=== PATIENT | male | born 1995 | race Hispanic/Latino ===

== ENCOUNTER 2022-07-07 03:50 | Emergency (ER) | payer SELFPAY ==
[2022-07-07 07:50] VITALS: BP 135/78
[2022-07-07] MEDS ORDERED: TETANUS,DIPH,PERTUSS(ACELL) VACCINE 0.5 ML SYRINGE IM ONE (07:55)
[2022-07-07] MEDS ORDERED: IBUPROFEN 600 MG TAB PO ONE (07:55)
--- NOTE | 2022-07-07 07:55 | Emergency Department Report ---
ED Laceration HPI - HPI Chief Complaint: Puncture Wound Stated Complaint: LOWER LIP PAIN Time Seen by Provider: 07/07/22 07:53 Occurred When: Yesterday Severity: mild Tetanus Status: Not up to Date Laceration Symptoms: Yes Pain, No Foreign Body Sensation, No Numbness, No Weakness Other History: 27 yo fell p tripping when getting oob during night. hit lower lip on dresser. has lip lacereation, small no bleeding, to lower lip. denies loc. no other injury. needs tdap. here with father ED Review of Systems ROS: Stated complaint: LOWER LIP PAIN Other details as noted in HPI Comment: All other systems reviewed and negative ED Past Medical Hx - Past Medical History Previous Medical History?: No - Surgical History Past Surgical History?: No - Family History Family history: no significant - Social History Smoking Status: Current Some Day Smoker Substance Use Type: None - Medications Home Medications: Home Medications Medication Instructions Recorded Confirmed Last Taken Type Amoxicillin [Trimox CAP] 500 mg PO BID #20 capsule 07/07/22 Unknown Rx Chlorhexidine Mouthwash [Peridex] 15 ml MM BID #1 bottle 07/07/22 Unknown Rx Laceration Physical Exam - Exam General: Vital signs noted. No distress. Alert and acting appropriately. Laceration Location: Other Full Body Front + Back: 1 - lower lip through and through lip lac < 0.5 cm. has been in ER all night- no bleeding inner lip granulating. no repair needed. Laceration Exam: Yes Normal Distal CMS, No Foreign Body, No Exposed Tendon, Vessel, or Nerve, No Tendon Injury ED Course Vital Signs 07/07/22 07/07/22 04:26 07:48 Temperature 98.4 F Pulse Rate 60 78 Respiratory 16 14 Rate Blood Pressure 118/54 Blood Pressure 118/54 135/78 [Right] O2 Sat by Pulse 98 98 Oximetry - Laceration /Wound Repair lip Wound Location: head Wound's Depth, Shape: superficial Wound Explored: clean Irrigated w/ Saline (ccs): 100 Betadine Prep?: Yes Progress: no repair wound cleaned oral care given wound instructions provided ED Medical Decision Making - Medical Decision Making wound care see procedure Vital Signs 07/07/22 07/07/22 04:26 07:48 Temperature 98.4 F Pulse Rate 60 78 Respiratory 16 14 Rate Blood Pressure 118/54 Blood Pressure 118/54 135/78 [Right] O2 Sat by Pulse 98 98 Oximetry instructed on wound care medicated in ER for pain and with antibiotic dc home with dc plan of care including diet, meds, activity and follow up verbalizes understanding of plan of care. - Differential Diagnosis simple lac Critical care attestation.: If time is entered above; I have spent that time in minutes in the direct care of this critically ill patient, excluding procedure time. ED Disposition Clinical Impression: Lip laceration Qualifiers: Encounter type: initial encounter Qualified Code(s): S01.511A - Laceration without foreign body of lip, initial encounter Disposition: HOME / SELF CARE / HOMELESS Is pt being admited?: No Does the pt Need Aspirin: No Condition: Stable Instructions: Mouth Laceration Additional Instructions: MEDS ORDERED TODAY ICE TO LIP TODAY OVER THE COUNTER MOTRIN OR TYLENOL FOR PAIN FOLLOW UP WITH PCP THIS WEEK FOR RECHECK REFERRAL BELOW Prescriptions: Chlorhexidine Mouthwash [Peridex] 15 ml MM BID #1 bottle Amoxicillin [Trimox CAP] 500 mg PO BID #20 capsule Referrals: EVARISTO HAYES MD [Primary Care Provider] - 3-5 Days Forms: Accompanied Note, Work/School Release Form(ED) Time of Disposition: 08:16
[2022-07-07] MEDS ORDERED: AMOXICILLIN 500 MG CAP PO ONE (07:56)
[2022-07-07] MEDS ORDERED: HYDROGEN PEROXIDE 118 ML SOLUTION TP ONE (08:16)
== END 2022-07-07 08:30 | disposition home or self-care (01) ==
LOC: ED 03:50
DX: S01.511A Laceration without foreign body of lip, initial encounter (principal); F17.200 Nicotine dependence, unspecified, uncomplicated; W01.0XXA Fall on same level from slipping, tripping and stumbling without subsequent striking against object, initial encounter; Y93.89 Activity, other specified; Y92.89 Other specified places as the place of occurrence of the external cause; Y99.8 Other external cause status
CPT/HCPCS: 90471; 90715; 99283